=== PATIENT | male | born 1980 | race Caucasian/White ===

== ENCOUNTER 2016-04-15 12:56 | Emergency (ER) | payer OTHER ==
[~2016-04-15] VITALS: Ht 182.9 cm; Wt 109.9 kg
[~2016-04-15 12:56] MED LIST: CLEOCIN300 MG PO; CLINDAMYCIN HC300 MG PO; HYDROCODON-ACE1 EAC7 PO; OXYCODONE HCL10 MG PO; OXYCODONE HCL5 M1 PO; PERCOCET 5/31 TABLET PO; PROAIR HFA8.5 GM IH
[2016-04-15] MEDS ORDERED: PREDNISONE10 MG PO (17:47)
[2016-04-15] MEDS ORDERED: PERCOCET 5/31 TABLET PO (17:47)
[2016-04-15] MEDS ORDERED: VALIUM5 MG PO (17:47)
[2016-04-15] MEDS ORDERED: ROXICODONE5 MG PO (18:16)
[2016-04-15 18:26] VITALS: BP 145/102
== END 2016-04-15 18:30 | disposition home or self-care (01) ==
LOC: EME 12:56
DX: M54.5 Low back pain (principal); M79.672 Pain in left foot; J45.909 Unspecified asthma, uncomplicated
CPT/HCPCS: 72100; 99281; 99283; J3010

== ENCOUNTER 2016-04-21 02:06 | Observation (INO) | payer OTHER ==
[~2016-04-21] VITALS: Ht 182.9 cm; Wt 109.5 kg
[~2016-04-21 02:06] MED LIST changes: +PREDNISONE10 MG PO; +ROXICODONE5 MG PO; +VALIUM5 MG PO
[2016-04-21 02:52] LABS: BASOPHIL COUNT 0.1 K/uL (0-0.1); EOSINOPHIL (%) 6.9 % (0-5); EOSINOPHIL COUNT 0.7 K/uL (0-0.3); HEMATOCRIT 45.5 % (38.0-50.0); IMMATURE GRANULOCYTE (%) 0.3 % (0.0-0.7); INSTRUMENT ABS NEUTROPHIL CT 3.9 K/uL; LYMPHOCYTE COUNT 4.1 K/uL (1.0-2.8); MCH 29.3 PG (29.0-34.0); MCHC 34.5 G/DL (30.0-36.0); MEAN PLAT.VOLUME 10.1 uM^3 (9.0-12.4); MONOCYTE COUNT 0.7 K/uL (0-0.8); NEUTROPHIL (%) 41.4 % (45-76); NEUTROPHIL COUNT 3.9 K/uL (1.8-6.4); PLATELET COUNT 234 K/uL (156-360); RBC DIS.WIDTH-CV 13.4 % (11.8-14.6); RBC DIS.WIDTH-SD 41.4 % (39-53); RED BLOOD COUNT 5.35 M/uL (4.00-5.50); WHITE BLOOD COUNT 9.4 K/uL (4.1-10.2)
[2016-04-21 02:52] LABS: BASE EXCESS -1.8 mEq/L (-3 to +3); BICARBONATE 18.8 mEq/L (22-26); CARBOXY HGB 2.9 % (0-5); METHEMOGLOBIN 1.4 % (0-1.5); PCO2 23 mm Hg (35-45); PO2 501 mm Hg (80-100); SITE LR; pH 7.52 (7.35-7.45)
[2016-04-21 02:53] LABS: COMMENTS - BLOOD GASES A+C+; DEVICE 840; FI02 100 %; MODE SPONT; PEEP 5 CM/H20; PRES. SUPPORT 10 CM/H2O; TOTAL RESP RATE 31 resp/min
[2016-04-21 03:04] LABS: CHLORIDE 109 mEq/L (99-109); POTASSIUM 3.4 mEq/L (3.7-5.4); SODIUM 142 mEq/L (136-147)
[2016-04-21 03:06] LABS: GLUCOSE 123 mg/dL (70-99)
[2016-04-21 03:07] LABS: ANION GAP 16 MEQ/L (2-14)
[2016-04-21 03:10] LABS: D-DIMER ELISA 0.16 mg/L FEU (< 0.57); GFR ESTIMATE (CALCULATED) > 59 mL/min/; UREA NITROGEN (BUN) 12 mg/dL (9-23)
[2016-04-21 03:16] LABS: TROP-I INTERPRETATION NEGATIVE; TROPONIN-I < 0.01 ng/mL (0.0-0.30)
[2016-04-21 07:25] VITALS: BP 129/60
[2016-04-21] MEDS ORDERED: OXYCODONE HCL15 MG PO (07:29)
[2016-04-21] MEDS ORDERED: SPIRIVA1 INHALATI IH (07:33)
[2016-04-21] MEDS ORDERED: SYMBICORT60 INHALAT IH (07:33)
[2016-04-21] MEDS ORDERED: ASMANEX HFA13 GM IH (07:33)
[2016-04-21] MEDS ORDERED: DUONEB 2.5-0.5 M3 ML AEROSOL (07:34)
[2016-04-21] MEDS ORDERED: EPIPEN ADU0.3 MG/0.3 IM (07:35)
[2016-04-21 10:11] LABS: TROP-I INTERPRETATION NEGATIVE; TROPONIN-I < 0.01 ng/mL (0.0-0.30)
[2016-04-21 11:18] VITALS: BP 120/67
[2016-04-21 11:56] VITALS: BP 120/67
[2016-04-21 13:30] LABS: ADD MIUA? NO; BILIRUBIN NEGATIVE; BLOOD NEGATIVE; COLOR YELLOW ((YELLOW)); GLUCOSE (STRIP) >=500; KETONES NEGATIVE; LEUKOCYTES NEGATIVE; NITRITE NEGATIVE; PROTEIN (STRIP) NEGATIVE; SPECIFIC GRAVITY 1.022 (1.000-1.030); UROBILINOGEN 0.2 MG/DL (0.2-1.0)
[2016-04-21 14:00] LABS: AMPHETAMINES QUANT VALUE 0 NG/ML; BARBITUATES QUANT VALUE 0 NG/ML; BENZODIAZEPINES, URINE SCREEN POSITIVE (200 ng/mL); OPIATES QUANTITATIVE VALUE 0 NG/ML; PHENCYCLIDINE QUANT VALUE 0 NG/ML
[2016-04-21 15:44] LABS: ANION GAP 10 MEQ/L (2-14); CHLORIDE 108 MEQ/L (99-109); GFR ESTIMATE (CALCULATED) > 59 mL/min/; GLUCOSE 158 mg/dL (70-99); SAMPLE HEMOLYSIS CHECK 0; SAMPLE ICTERIC CHECK 0; SAMPLE LIPEMIA CHECK 0; SODIUM 138 MEQ/L (136-147); UREA NITROGEN (BUN) 15 mg/dL (9-23)
[2016-04-21 15:45] LABS: TROP-I INTERPRETATION NEGATIVE; TROPONIN-I < 0.01 ng/mL (0.0-0.30)
[2016-04-21 15:46] LABS: POTASSIUM 4.8 MEQ/L (3.7-5.4)
== END 2016-04-21 16:25 | disposition left against medical advice (07) ==
LOC: EME → EDBD 02:06 → EME 02:06 → EDOF 06:20 → 5WEST 07:41
PROVIDERS: Emergency Medicine; Family Medicine
DX: R07.89 Other chest pain (principal); J44.9 Chronic obstructive pulmonary disease, unspecified; F17.200 Nicotine dependence, unspecified, uncomplicated; G89.29 Other chronic pain; M54.9 Dorsalgia, unspecified; R00.0 Tachycardia, unspecified
CPT/HCPCS: 36600; 71010; 71275; 80048; 80048 91; 80306 90; 81003; 82803; 84484; 85025; 85379; 93005; 94002; 94644; 99281; 99285; G0378; J1100; J1170; J1650; J2060; J2405; J2930; J3010; J3105; J3475; J7030; J7512

== ENCOUNTER 2016-08-03 13:48 | Emergency (ER) | payer OTHER ==
[~2016-08-03] VITALS: Ht 180.3 cm; Wt 108.7 kg
[~2016-08-03 13:48] MED LIST changes: +ASMANEX HFA13 GM IH; +DUONEB 2.5-0.5 M3 ML AEROSOL; +EPIPEN ADU0.3 MG/0.3 IM; +OXYCODONE HCL15 MG PO; +SPIRIVA1 INHALATI IH; +SYMBICORT60 INHALAT IH
[2016-08-03] MEDS ORDERED: ACULAR 0.5100 DROP/5 BOTH EYES (15:13)
[2016-08-03] MEDS ORDERED: OXAYDO5 MG PO (15:13)
[2016-08-03 15:29] VITALS: BP 142/86
== END 2016-08-03 15:30 | disposition home or self-care (01) ==
LOC: EME 13:48
DX: H20.00 Unspecified acute and subacute iridocyclitis (principal); H53.149 Visual discomfort, unspecified; F17.200 Nicotine dependence, unspecified, uncomplicated; Z88.0 Allergy status to penicillin; J44.9 Chronic obstructive pulmonary disease, unspecified; M19.90 Unspecified osteoarthritis, unspecified site; Z91.040 Latex allergy status; Z88.8 Allergy status to other drugs, medicaments and biological substances; Z88.5 Allergy status to narcotic agent
CPT/HCPCS: 99281; 99283

== ENCOUNTER 2016-08-25 22:21 | Emergency (ER) | payer OTHER ==
[~2016-08-25] VITALS: Ht 182.9 cm; Wt 111.4 kg
[~2016-08-25 22:21] MED LIST changes: +ACULAR 0.5100 DROP/5 BOTH EYES; +OXAYDO5 MG PO
[2016-08-25 23:20] LABS: BASOPHIL COUNT 0.1 K/uL (0-0.1); EOSINOPHIL (%) 4.6 % (0-5); EOSINOPHIL COUNT 0.5 K/uL (0-0.3); HEMATOCRIT 48.2 % (38.0-50.0); IMMATURE GRANULOCYTE (%) 0.3 % (0.0-0.7); INSTRUMENT ABS NEUTROPHIL CT 4.3 K/uL; MCH 30.2 PG (29.0-34.0); MCHC 34.9 G/DL (30.0-36.0); MCV 86.7 FL (86-99); MONOCYTE (%) 8.4 % (3-12); MONOCYTE COUNT 0.8 K/uL (0-0.8); NEUTROPHIL (%) 44.4 % (45-76); NEUTROPHIL COUNT 4.3 K/uL (1.8-6.4); PLATELET COUNT 264 K/uL (156-360); RBC DIS.WIDTH-CV 13.2 % (11.8-14.6); RBC DIS.WIDTH-SD 42.3 % (39-53); RED BLOOD COUNT 5.56 M/uL (4.00-5.50); WHITE BLOOD COUNT 9.7 K/uL (4.1-10.2)
[2016-08-25 23:31] LABS: CHLORIDE 109 mEq/L (99-109); POTASSIUM 3.7 mEq/L (3.7-5.4); SODIUM 144 mEq/L (136-147)
[2016-08-25 23:32] LABS: GLUCOSE 101 mg/dL (70-99)
[2016-08-25 23:34] LABS: ANION GAP 16 MEQ/L (2-14)
[2016-08-25 23:35] LABS: SERUM ETHYL ALCOHOL 201 mg/dL
[2016-08-25 23:36] LABS: GFR ESTIMATE (CALCULATED) > 59 mL/min/
[2016-08-25 23:37] LABS: UREA NITROGEN (BUN) 14 mg/dL (9-23)
[2016-08-25 23:42] LABS: TROP-I INTERPRETATION NEGATIVE; TROPONIN-I < 0.01 ng/mL (0.0-0.30)
[2016-08-25 23:46] VITALS: BP 138/76
== END 2016-08-25 23:49 | disposition left against medical advice (07) ==
LOC: EME 22:21
PROVIDERS: Emergency Medicine
DX: F10.129 Alcohol abuse with intoxication, unspecified (principal); R55 Syncope and collapse; Y90.7 Blood alcohol level of 200-239 mg/100 ml; J44.9 Chronic obstructive pulmonary disease, unspecified; Z87.442 Personal history of urinary calculi; Z91.040 Latex allergy status; Z88.0 Allergy status to penicillin; Z88.6 Allergy status to analgesic agent; F17.200 Nicotine dependence, unspecified, uncomplicated
CPT/HCPCS: 71010; 80048; 84484; 85025; 93005; 99281; 99284; G0480

== ENCOUNTER 2017-09-13 23:26 | Inpatient (IN) | payer OTHER ==
[~2017-09-13] VITALS: Ht 180.3 cm; Wt 120.2 kg
[2017-09-13 23:57] LABS: BASOPHIL (%) 0.8 % (0-1); BASOPHIL COUNT 0.1 K/uL (0-0.1); EOSINOPHIL (%) 1.5 % (0-5); EOSINOPHIL COUNT 0.3 K/uL (0-0.3); HEMOGLOBIN 17.3 G/DL (12.5-16.6); IMMATURE GRANULOCYTE (%) 0.5 % (0.0-0.7); LYMPHOCYTE (%) 39.4 % (15-42); LYMPHOCYTE COUNT 6.9 K/uL (1.0-2.8); MCH 30.1 PG (29.0-34.0); MCHC 35.3 G/DL (30.0-36.0); MCV 85.4 FL (86-99); MONOCYTE (%) 9.9 % (3-12); MONOCYTE COUNT 1.7 K/uL (0-0.8); NEUTROPHIL (%) 47.9 % (45-76); NEUTROPHIL COUNT 8.3 K/uL (1.8-6.4); PLATELET COUNT 292 K/uL (156-360); RBC DIS.WIDTH-CV 13.3 % (11.8-14.6); RBC DIS.WIDTH-SD 41.4 % (39-53); RED BLOOD COUNT 5.74 M/uL (4.00-5.50); WHITE BLOOD COUNT 17.4 K/uL (4.1-10.2)
[2017-09-14] VITALS (13 sets, daily range): BP systolic 116–154; BP diastolic 71–121
[2017-09-14 00:10] LABS: AMYLASE 66 IU/L (1-118); CHLORIDE 104 mEq/L (99-109); POTASSIUM 3.7 mEq/L (3.7-5.4); SODIUM 139 mEq/L (136-147)
[2017-09-14 00:12] LABS: GLUCOSE 103 mg/dL (70-99)
[2017-09-14 00:15] LABS: SERUM ETHYL ALCOHOL 246 mg/dL
[2017-09-14 00:16] LABS: CREATININE 1.2 mg/dL (0.6-1.3); GFR ESTIMATE (CALCULATED) > 59 mL/min/ (58.99-99999)
[2017-09-14 00:17] LABS: UREA NITROGEN (BUN) 12 mg/dL (9-23)
[2017-09-14 00:19] LABS: LIPASE 64 U/L (1.0-51.0)
[2017-09-14 00:54] LABS: APPEARANCE CLEAR ((CLEAR)); BILIRUBIN NEGATIVE; BLOOD NEGATIVE; COLOR YELLOW ((YELLOW)); GLUCOSE (STRIP) NEGATIVE; KETONES NEGATIVE; LEUKOCYTES NEGATIVE; NITRITE NEGATIVE; PROTEIN (STRIP) NEGATIVE; SPECIFIC GRAVITY 1.024 (1.000-1.030); UCUL ADDED? NO; UROBILINOGEN 0.2 MG/DL (0.2-1.0)
[2017-09-14 01:03] LABS: COMMENTS - BLOOD GASES C+; DEVICE VENT; SITE RR
[2017-09-14 01:04] LABS: FI02 100 %; MECHANICAL RATE 12 resp/min; MODE AC; O2 SATURATION (CALCULATED) 94.1 % (95-99); PCO2 48 mm Hg (35-45); PEEP 5 CM/H20; PO2 209 mm Hg (80-100); TIDAL VOLUME 500 ML; TOTAL RESP RATE 24 resp/min; pH 7.22 (7.35-7.45)
[2017-09-14 01:05] LABS: AMPHETAMINE NEGATIVE (500 ng/mL); BARBITURATES NEGATIVE (200 ng/mL); BENZODIAZEPINES NEGATIVE (150 ng/mL); BUPRENORPHINE NEGATIVE (10 ng/mL); COCAINE NEGATIVE (150 ng/mL); METHADONE NEGATIVE (200 ng/mL); METHAMPHETAMINE NEGATIVE (500 ng/mL); OPIATES (MORPHINE) NEGATIVE (100 ng/mL); OXYCODONE NEGATIVE (100 ng/mL); PHENCYCLIDINE NEGATIVE (25 ng/mL); PROPOXYPHENE NEGATIVE (300 ng/mL); THC CANNABINOIDS NEGATIVE (50 ng/mL); TRICYCLIC ANTIDEPRESSANTS NEGATIVE (300 ng/mL)
[2017-09-14 01:05] LABS: BASE EXCESS -8.3 mEq/L (-3 to +3); BICARBONATE 19.6 mEq/L (22-26); METHEMOGLOBIN 1.5 % (0-1.5)
[2017-09-14 01:49] LABS: ACETAMINOPHEN (TYLENOL) < 10 mcg/mL (10-30); SALICYLATE < 5.0 MG/DL (15-30)
[2017-09-14 02:04] LABS: SITE RR
[2017-09-14 02:05] LABS: CARBOXY HGB 2.5 % (0-5); COMMENTS - BLOOD GASES C+; DEVICE VENT; FI02 100 %; MECHANICAL RATE 12 resp/min; METHEMOGLOBIN 1.5 % (0-1.5); MODE AC; O2 SATURATION (CALCULATED) 95.8 % (95-99); PCO2 44 mm Hg (35-45); PEEP 5 CM/H20; PO2 160 mm Hg (80-100); TIDAL VOLUME 550 ML; TOTAL RESP RATE 18 resp/min; pH 7.26 (7.35-7.45)
[2017-09-14 02:06] LABS: BASE EXCESS -7.3 mEq/L (-3 to +3); BICARBONATE 19.7 mEq/L (22-26)
[2017-09-14 03:51] LABS: COMMENTS - BLOOD GASES C+; DEVICE VENT; FI02 100 %; MECHANICAL RATE 12 resp/min; MODE AC; PCO2 42 mm Hg (35-45); PEEP 5 CM/H20; SITE RR; TIDAL VOLUME 550 ML; TOTAL RESP RATE 18 resp/min; pH 7.31 (7.35-7.45)
[2017-09-14 03:52] LABS: BICARBONATE 21.1 mEq/L (22-26); CARBOXY HGB 1.9 % (0-5); METHEMOGLOBIN 1.5 % (0-1.5); O2 SATURATION (CALCULATED) 96.6 % (95-99); PO2 233 mm Hg (80-100)
[2017-09-14 06:54] LABS: CREATINE KINASE 345 IU/L (1-294); TRIGLYCERIDES 919 MG/DL (Normal: <150)
[2017-09-15] VITALS (17 sets, daily range): BP systolic 126–221; BP diastolic 70–145
[2017-09-15 11:02] LABS: BASOPHIL (%) 0.5 % (0-1); BASOPHIL COUNT 0.1 K/uL (0-0.1); EOSINOPHIL (%) 1.1 % (0-5); EOSINOPHIL COUNT 0.1 K/uL (0-0.3); HEMATOCRIT 43.5 % (38.0-50.0); IMMATURE GRANULOCYTE (%) 0.4 % (0.0-0.7); LYMPHOCYTE (%) 18.2 % (15-42); LYMPHOCYTE COUNT 2.2 K/uL (1.0-2.8); MCH 30.1 PG (29.0-34.0); MCHC 34.5 G/DL (30.0-36.0); MCV 87.2 FL (86-99); MONOCYTE COUNT 1.2 K/uL (0-0.8); NEUTROPHIL (%) 69.8 % (45-76); NEUTROPHIL COUNT 8.5 K/uL (1.8-6.4); PLATELET COUNT 224 K/uL (156-360); RBC DIS.WIDTH-CV 13.4 % (11.8-14.6); RBC DIS.WIDTH-SD 42.9 % (39-53); RED BLOOD COUNT 4.99 M/uL (4.00-5.50); WHITE BLOOD COUNT 12.2 K/uL (4.1-10.2)
[2017-09-15 11:21] LABS: ALBUMIN 3.8 G/DL (3.2-4.8); ALKALINE PHOSPHATASE 81 IU/L (3-129); ALT (GPT) 28 IU/L (3-49); AST (GOT) 24 IU/L (2-34); CHLORIDE 102 MEQ/L (99-109); CREATININE 0.9 MG/DL (0.6-1.3); GFR ESTIMATE (CALCULATED) > 59 mL/min/ (58.99-99999); GLUCOSE 117 mg/dL (70-99); POTASSIUM 3.8 MEQ/L (3.7-5.4); SODIUM 137 MEQ/L (136-147); TOTAL BILIRUBIN 0.7 MG/DL (0.0-1.0); TOTAL PROTEIN 6.3 G/DL (6.4-8.3); UREA NITROGEN (BUN) 9 mg/dL (9-23)
[2017-09-16 02:21] VITALS: BP 148/76
[2017-09-16 09:00] VITALS: BP 138/88
[2017-09-16 12:35] VITALS: BP 130/76
[2017-09-16 17:11] VITALS: BP 147/90
[2017-09-16 19:50] VITALS: BP 137/91
[2017-09-16 22:48] VITALS: BP 137/78
[2017-09-17 02:51] VITALS: BP 124/59
[2017-09-17 07:03] VITALS: BP 124/72
[2017-09-17 11:01] VITALS: BP 114/69
[2017-09-17] MEDS ORDERED: AMLODIPINE BESY10 MG PO (11:22)
[2017-09-17] MEDS ORDERED: LOPRESSOR50 MG PO (11:22)
[2017-09-17] MEDS ORDERED: OXYCODONE HCL5 MG PO (13:12)
== END 2017-09-17 13:57 | disposition home or self-care (01) | DRG 88 ==
LOC: EME 23:26 → TRA 23:26 → EME 23:26 → TRA 23:44 → 4WEST 09-14 00:56 → EDOF 09-14 00:56 → ENRESERV 09-14 01:04 → 4WEST 09-14 04:01 → ENRESERV 09-15 15:17 → 4EAST 09-15 19:56 → ENPENDDIS 09-17 → 4EAST 09-17 13:57
PROVIDERS: Emergency Medicine; Hospitalist; Surgery
DX: S06.0X9A Concussion with loss of consciousness of unspecified duration, initial encounter (principal); S01.01XA Laceration without foreign body of scalp, initial encounter; R40.2432 Glasgow coma scale score 3-8, at arrival to emergency department; Y04.0XXA Assault by unarmed brawl or fight, initial encounter; Y92.009 Unspecified place in unspecified non-institutional (private) residence as the place of occurrence of the external cause; J96.00 Acute respiratory failure, unspecified whether with hypoxia or hypercapnia; E87.2 Acidosis; E86.0 Dehydration; F10.129 Alcohol abuse with intoxication, unspecified; Y90.8 Blood alcohol level of 240 mg/100 ml or more; S40.022A Contusion of left upper arm, initial encounter; S40.021A Contusion of right upper arm, initial encounter; I10 Essential (primary) hypertension; M54.2 Cervicalgia; J44.9 Chronic obstructive pulmonary disease, unspecified; G89.29 Other chronic pain; F17.210 Nicotine dependence, cigarettes, uncomplicated; F12.90 Cannabis use, unspecified, uncomplicated; Z88.0 Allergy status to penicillin; Z88.6 Allergy status to analgesic agent; Z88.5 Allergy status to narcotic agent; Z91.040 Latex allergy status
CPT/HCPCS: 36600; 70450; 70486; 71045; 71260; 72125; 72129; 72132; 72141; 74177; 80048; 80053; 81003; 82150; 82550; 82550 91; 83605; 83690; 84478; 85025; 86850; 86900; 86901; 87070; 87077; 87181; 87205; 87641; 94002; 94003; 94640; 94760; 94799; 99281; 99285; G0480; J0360; J1170; J1644; J2250; J2704; J3480; J7030; S0028

== ENCOUNTER 2017-09-24 15:11 | Emergency (ER) | payer OTHER ==
[~2017-09-24] VITALS: Ht 182.9 cm; Wt 116.2 kg
[~2017-09-24 15:11] MED LIST changes: +AMLODIPINE BESY10 MG PO; +LOPRESSOR50 MG PO; +OXYCODONE HCL5 MG PO
[2017-09-24 15:46] VITALS: BP 165/93
== END 2017-09-24 17:02 | disposition home or self-care (01) ==
LOC: EME 15:11
DX: S01.01XD Laceration without foreign body of scalp, subsequent encounter (principal); Y09 Assault by unspecified means; Z88.6 Allergy status to analgesic agent; Z88.5 Allergy status to narcotic agent; Z88.2 Allergy status to sulfonamides; Z88.0 Allergy status to penicillin; Z91.040 Latex allergy status; F17.200 Nicotine dependence, unspecified, uncomplicated